=== PATIENT | female | born 1970 | race Caucasian/White ===

== ENCOUNTER → 2016-04-27 | Outpatient (CLI) | payer OTHER ==
[~2016-04-27] MED LIST: BIOT10CA PO; CALC-5 PO; PEDICHW50 PO; PRLSR20 PO; TNR25 PO
--- NOTE | 2016-05-04 15:38 | EEG Procedure Note ---
EEG Procedure Note Date of Service Apr 27, 2016. Start / End Times Start Time: 04/27/2016 at 1:41 PM End Time: 04/29/2016 at 11:42 AM Referring Physician Howard Small History This is a 46-year-old female with near syncope. Ambulatory 48-hour EEG for further evaluation of possible seizure etiology and spell captured. Home Medication List Scheduled Atenolol (Atenolol), 12.5 MG PO QAM Biotin (Cvs Biotin), 10 MG PO DAILY Calcium-Magnesium W/ Vitamin D (Calcium 500), 2 TABS PO DAILY Omeprazole (Prilosec), 20 MG PO QHS Pediatric Multiple Vitamin W/ (Flintstones Chewable), 2 TAB PO QAM Description This is a 21 electrode ambulatory EEG with a single channel dedicated to limited EKG. The electrodes were placed in accordance with the International 10- 20 system. Heart rate limited EKG lead was noted to be regular. Technical factors limiting read and interpretation of EEG: F7 disconnection after 4:20 PM on April 27 O2, P3, P4 disconnection artifact after 11:30 PM on April 27 Fp1 disconnection artifact after 1 AM on April 28 T6 and T4 disconnection artifact after 7 AM on April 28. Multiple lead artifact after 9 AM on April 28 significantly limiting the EEG read and interpretation after this time. At the start of the recording the patient was in an awake state. Background was well organized and composed of symmetric mixed alpha and beta frequencies. There was a symmetric well-formed moderate amplitude 10-11 Hz posterior dominant rhythm that was reactive to eye opening and closure. Sleep was indicated by symmetric sleep spindles and vertex waves. Patient journal was returned and reviewed. No clinical events were noted. Interpretation This is a normal 48-hour ambulatory EEG. Day 2 was severely technically limited secondary to multiple electrode artifact. There was no observed electrographic seizures or epileptiform discharges. Clinical Correlation Day 2 was severely technically limited secondary to multiple electrode artifact. A normal EEG does not rule out epilepsy if there is a strong clinical suspicion or for clinical events not captured.
== END | disposition home or self-care (01) ==
LOC: C.NEUR 13:15
PROVIDERS: ATTEND Psychiatry & Neurology Neurology
DX: R55 Syncope and collapse (principal)

== ENCOUNTER 2018-03-17 05:21 | Observation (INO) ==
--- NOTE | 2018-03-03 09:52 | Anesthesiology Consultation ---
Date of Service March 03, 2018 Assessment & Plan (1) Encounter for pre-operative examination: Chart Review Chart Review: Acceptable Risk for Surgery and Patient seen in Pre Admission Testing Consults Requested medical (Dr. Louise ([facility] [place] in [place]) on 03/09) Patient saw PCP on 03/14/18. Dr. Louise stated "Will have her complete CXR. If unremarkable (it was), then maximized for OR." Teaching & Discussion Pre-Anesthesia Teaching/Discussion Notes: Instructed NPO after midnight before surgery, except medications with 15 cc of water. Medication instructions provided according to the PAT guidelines. ASA ASA2 Proposed Anesthesia Anesthesia Type: General Risk / Benefits Reviewed With: PT / POA / Parent / Guardian, Accepts Plan and Informed Consent Obtained NPO Date Last Intake of Fluids: 03/17/18 Time Last Intake of Fluids: 04:00 Date Last Intake of Solids: 03/16/18 Time Last Intake of Solids: 19:00 History Surgery Operation Date: 03/17/18 07:00 Proposed Procedures p Evaluation Under Anesthesia, Transvaginal Hysterectomy, Cystoscopy - Selvin Miller MD Height/Weight Height: 5 ft 5 in Weight: 72.1 kg Allergies Allergy/AdvReac Type Severity Reaction Status Date / Time latex Allergy Mild RASH Verified 03/17/18 05:50 acetaminophen [From Percocet] AdvReac Unknown Abdominal Verified 03/17/18 05:50 Pain ? SEE NOTES codeine AdvReac Unknown Abdominal Verified 03/17/18 05:50 Pain ? SEE NOTES hydrocodone [From Vicodin] AdvReac Unknown Abdominal Verified 03/17/18 05:50 Pain ? SEE NOTES oxycodone [From Percocet] AdvReac Unknown Abdominal Verified 03/17/18 05:50 Pain ? SEE NOTES Medications Home Medications Medication Instructions Recorded Confirmed Last Taken ascorbic acid-vitamin E-biotin 3 tab PO DAILY 02/22/18 03/17/18 03/16/18 05:30 [Hair, Skin, Nails with Biotin] cetirizine 10 mg PO DAILY 02/22/18 03/17/18 03/16/18 05:30 cholecalciferol (vitamin D3) 2,000 unit PO DAILY 02/22/18 03/17/18 03/16/18 05: 30 [Vitamin D3] fluticasone [Flonase Allergy 1 spray INTRANASAL DAILY PRN 02/22/18 03/17/18 04:15 Relief] omeprazole 20 mg PO BID 02/22/18 03/17/18 03/17/18 04:15 pediatric multivitamin 2 tab PO DAILY 02/22/18 03/17/18 03/16/18 05:30 acetaminophen [Acetaminophen Extra 500 mg PO Q6H PRN 03/17/18 03/17/18 Unknown Strength] albuterol sulfate [Ventolin HFA] 2 puff INHALATION QID PRN 03/17/18 03/17/18 Unknown metronidazole 500 mg PO BID 03/17/18 03/17/18 03/16/18 18:00 Active Medications Generic Name Dose Route Start Last Admin Trade Name Freq PRN Reason Stop Dose Admin Lactated Ringer's 1,000 mls @ 15 mls/hr 03/17/18 06:00 03/17/18 06:17 Lr IV 03/18/18 05:59 15 mls/hr .Q24H OUMAR Administration Beta Lucinda Beta Lucinda Taken Within 24 Hours: No Past Medical History Medical History Acid reflux Confusion, hx of, without neuro findings 2016/CHEST & HEAD PRESSURE/DISORIENTED...[facility] ED VISIT/NEURO VISIT...SYMTPOMS "CAFFEINE INDUCED" Diabetic neuropathy LEGS History of prediabetes HX OF "BORDERLINE DIABETIC"/MEDS..RESOLVED/NO MEDS History of skin cancer Neck muscle strain PAC (premature atrial contraction) "CAFFEINE INDUCED" PVC's (premature ventricular contractions) "CAFFEINE INDUCED" Past Family History Family History Father Family history of diabetes mellitus Grandfather Family history of diabetes mellitus Other Family history of breast cancer Family history of colon cancer Family history of prostate cancer Past Surgical History Surgical History History of arthroscopy of right shoulder ROTATOR CUFF REPAIR History of colonoscopy History of endoscopy UPPER History of foot surgery LEFT X2 (ARTHROSCOPY X1, OPEN X1) History of laparoscopic cholecystectomy History of sleeve gastrectomy "GASTRIC SLEEVE" History of wisdom tooth extraction Hx of melanoma excision Around left eye Past Anesthesia History No Hx of Anesthesia Complications and No Family Hx of Anesthesia Complications History of PONV No Motion Sickness Screening History of Motion Sickness: No Social History Smoking Status: Current every day smoker tobacco type: cigarettes Smoking cigarettes per day: .5 PPD X 26 YEARS Do You Dip or Chew Tobacco: No Hx Alcohol Use: No Hx Substance Use: No substance use type: does not use Exercise / Class Metabolic Activity II 4-5 Yardwork/Stairs/Walk up hill (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 Denies CP or SOB. ) Review of Systems Patient denies chest pain, shortness of breath, dyspnea on exertion, cough, wheezing. +joint pain (knees) +acid reflux +palpitations (caffeine induced, with panic attacks) Physical Exam Vital Signs Last Vital Signs Temp 37.0 C 03/17/18 06:02 Pulse 63 03/17/18 06:02 Resp 18 03/17/18 06:02 BP 105/64 03/17/18 06:02 Pulse Ox 98 03/17/18 06:02 BP: 97/68 P: 56 R: 18 T: 98.6 SPO2: 99% ENMT Thyromental Distance: > or= 3.5 Finger Breadths (3.5) Mallampati Class: II Neck normal visual inspection and trachea midline; neck extension not limited Respiratory normal respiratory effort Auscultation: lungs clear to auscultation bilaterally Cardiovascular Rate/Rhythm: regular rate and regular rhythm Heart Sounds: no murmur Vessels: no carotid bruit Neurologic moves all extremities Psychiatric Orientation: alert and oriented x 3 Testing Electrocardiogram Date: 03/03/18 Findings: + SB @ (53) Sinus arrhythmia When compared with ECG of 03/25/16, no significant change was found. Chest X-Ray Date: 03/14/18 Findings: + NAD Echocardiogram Date: 03/25/16 EF: 60-65% LV Function: normal Valvular Disease: + no significant valvular disease Trace MR and TR. Stress Test Date: 03/25/16 Type: DSE Findings: + WNL Resting EF: 60-65% Resting LV Function: normal Resting RWMA: + none Baseline ECG displays NSR. Stress ECG shows no ST changes or arrhythmias. Frequent PVC's and ventricular bigeminy recorded during early recovery. Maximum HR was 84% of MPHR. Dobutamine infusion was terminated due to achieving target HR. Normal HR and BP response to dobutamine. Laboratory Results 03/03/18 10:09 Blood Type A Positive 03/03/18 10:09 Antibody Screen NEGATIVE 03/03/18 10:09 PT 10.9 Seconds (9.0-12.0) 03/03/18 10:09 INR 1.0 (0.9-1.1) 03/03/18 10:09 APTT 24.6 Seconds (21.0-31.0) 03/03/18 10:09 Urine Color Dark Yellow 03/03/18 10:09 Urine Appearance Clear (Clear) 03/03/18 10:09 Urine pH 5.5 (4.5-7.5) 03/03/18 10:09 Ur Specific [place] 1.026 (1.000-1.030) 03/03/18 10:09 Urine Protein Negative (Negative) 03/03/18 10:09 Urine Glucose (UA) Negative (Negative) 03/03/18 10:09 Urine Ketones Trace (Negative) H 03/03/18 10:09 Urine Nitrite Negative (Negative) 03/03/18 10:09 Ur Leukocyte Esterase Negative (Negative) 03/03/18 10:09 03/17/18 05:43 POC Glucose 101 H 03/17/18 Unknown POC Ur Test NEG
--- NOTE | 2018-03-03 10:07 | PAT Medication Instructions ---
Medication Instructions Date of Service March 03, 2018 Home Medications ascorbic acid-vitamin E-biotin [Hair, Skin, Nails with Biotin] 3 tab PO DAILY cetirizine 10 mg PO DAILY cholecalciferol (vitamin D3) 2,000 unit PO DAILY fluticasone [Flonase] 1 spray INTRANASAL DAILY NEEDED omeprazole 20 mg PO QAM pediatric multivitamin 2 tab PO DAILY Hold the morning of surgery ascorbic acid-vitamin E-biotin [Hair, Skin, Nails with Biotin] 3 tab PO DAILY cetirizine 10 mg PO DAILY cholecalciferol (vitamin D3) 2,000 unit PO DAILY pediatric multivitamin 2 tab PO DAILY Take morning of surgery Take with a sip of water, OTHERWISE NOTHING TO EAT OR DRINK AFTER MIDNIGHT: fluticasone [Flonase] 1 spray INTRANASAL DAILY NEEDED omeprazole 20 mg PO QAM Other Notes If you have any questions please call us at [phone] or [phone] or [phone] or [phone]
[2018-03-03 11:06] LABS: Appearance Urine Clear (Clear); Basophils # (auto) 0.01 K/uL (0-0.2); Basophils % (auto) 0.1 %; Bilirubin Urine Negative (Negative); Color Urine Dark Yellow; Eosinophils % (auto) 1.3 %; Glucose Urine UA Negative (Negative); Hematocrit (blood only) 38.8 % (37-47); Hemoglobin 12.9 g/dL (12.0-16.0); Immature Granulocytes # (auto) 0.01 K/uL (0.00-0.02); Immature Granulocytes % (auto) 0.1 %; Ketones Urine Trace (Negative); Leukocyte Esterase Urine Negative (Negative); Lymphocytes # (auto) 2.83 K/uL (1.2-3.4); Lymphocytes % (auto) 36.6 %; Mean Corpuscular Hgb Conc 33.2 g/dL (32-36); Mean Corpuscular Volume 91.5 fL (80-100); Mean Platelet Volume 10.5 fL (7.4-10.4); Monocytes # (auto) 0.59 K/uL (0.11-0.59); Monocytes % (auto) 7.6 %; Neutrophils % (auto) 54.3 %; Nitrite Urine Negative (Negative); Platelet Count 339 K/uL (130-400); Protein Urine Negative (Negative); RDW Coefficient of Variation 14.3 % (11.5-14.5); RDW Standard Deviation 48.5 fL (36.4-46.3); Red Blood Count 4.24 M/uL (4.2-5.4); Specific Gravity Urine 1.026 (1.000-1.030); Urobilinogen Urine Negative (Negative); White Blood Count 7.74 K/uL (4.8-10.8); pH Urine 5.5 (4.5-7.5)
[2018-03-03 11:25] LABS: Partial Thromboplastin Ratio 0.9; Partial Thromboplastin Time 24.6 Seconds (21.0-31.0); Prothrombin Time 10.9 Seconds (9.0-12.0)
[2018-03-17] MEDS ORDERED: CEFAZOLIN 2000MG 2,000 MG/15 ML SYR IV SCH (06:00)
[2018-03-17] MEDS ORDERED: LACTATED RINGER'S 1,000 ML IV SCH (06:00)
[2018-03-17] MEDS: LR 15ML/HR IV SCH ×2 (06:17→10:07)
[2018-03-17] MEDS ORDERED: ACETAMINOPHEN 1000 MG/100 ML IV IV ONE (06:39)
[2018-03-17] MEDS ORDERED: ONDANSETRON INJ 2 MG/ML 2 ML VIAL ONE (06:42)
[2018-03-17] MEDS ORDERED: DEXAMETHASONE SOD INJ 4 MG/ML VIAL ONE (06:42)
[2018-03-17] MEDS ORDERED: LIDOCAINE HCL 2% 2 ML VIAL/AMP(20MG/ML) INFIL ONE (06:42)
[2018-03-17] MEDS ORDERED: MIDAZOLAM HCL 1 MG/ML 2ML VIAL ONE (06:43)
[2018-03-17] MEDS ORDERED: PROPOFOL IV EMULSION 10 MG/ML 20 ML VIAL IV ONE (06:43)
[2018-03-17] MEDS ORDERED: fentaNYL citrate 100 MCG/2 ML VIAL ONE ×3 (06:43→11:21)
[2018-03-17] MEDS ORDERED: HYDROmorphone INJ 1 MG/ML SYRINGE IV PRN (06:47)
[2018-03-17] MEDS ORDERED: fentaNYL citrate 100 MCG/2 ML VIAL IV PRN (06:47)
[2018-03-17] MEDS ORDERED: ePHEDrine sulfate 50 MG/ML AMP IV PRN (06:47)
[2018-03-17] MEDS ORDERED: ONDANSETRON INJ 2 MG/ML 2 ML VIAL IV PRN ×2 (06:47→09:31)
[2018-03-17] MEDS ORDERED: ATROPINE SULFATE 0.1 MG/ML 5ML SYR IV PRN (06:47)
[2018-03-17] MEDS ORDERED: BUPIVACAINE/EPINEPHRINE 0.5% MPF 1:200,000 30 ML VIAL ONE (06:51)
[2018-03-17] MEDS ORDERED: [UNRECOGNIZED DRUG - OTHER] ONE (06:51)
--- NOTE | 2018-03-17 06:53 | History & Physical Bridge Note ---
Date of Service March 17, 2018 History & Physical Bridge Note I have examined the patient, reviewed the History & Physical and in the interval since the performance of the History & Physical I have noted the following changes of clinical significance: no changes noted
[2018-03-17] MEDS ORDERED: ePHEDrine sulfate 50 MG/ML SYR ONE (07:37)
[2018-03-17] MEDS ORDERED: NEOSTIGMINE METHYLSULFATE 5 MG/5 ML SYR ONE ×2 (07:46→11:05)
[2018-03-17] MEDS ORDERED: GLYCOPYRROLATE 0.2 MG/ML VIAL ONE ×2 (07:46→11:05)
[2018-03-17] MEDS ORDERED: ROCURONIUM BROMIDE 10 MG/ML 5 ML VIAL ONE (08:05)
[2018-03-17] MEDS ORDERED: METHYLENE BLUE 0.5% 10 ML VIAL ONE (08:55)
[2018-03-17] MEDS ORDERED: METHYLENE BLUE 0.5% 10 ML VIAL IV SCH (09:15)
--- NOTE | 2018-03-17 09:29 | Post Operative Brief Note ---
Immediate Post Op Note v1 Date of Surgery March 17, 2018 Pre & Post Diagnosis Operation Date: 03/17/18 07:00 Pre-Op Diagnosis: Heavy Periods Post-Op Diagnosis: Heavy Periods Procedure Operation Date: 03/17/18 07:00 Actual Procedures p Evaluation Under Anesthesia, Transvaginal Hysterectomy, Right salpingectomy, Mc call Culdeplasty, Cystoscopy(Not Applicable) - Selvin Miller MD Surgeon Selvin Miller MD Graduating Machine Operator Dr. Ken, FELISHA Hoover Estimated Blood Loss 50 Findings Consistent with Post-Op Diagnosis Fluids 900 ML Drains Jones Catheter Complications none Disposition Accompanied Patient To Recovery: Yes Disposition: Recovery Room Overlapping Procedure I was present for: the critical portions of procedure. (ENTIRE CASE)
[2018-03-17] MEDS ORDERED: MAGNESIUM HYDROXIDE SUSP 30 ML UDC PO PRN (09:31)
[2018-03-17] MEDS ORDERED: PROMETHAZINE HCL 25 MG in SODIUM CHLORIDE 0.9% 50 ML IV PRN (09:31)
[2018-03-17] MEDS ORDERED: SENNA 8.6 MG TAB PO PRN (09:31)
[2018-03-17] MEDS ORDERED: MEPERIDINE HCL 50 MG/ML CARP IV PRN (09:31)
[2018-03-17] MEDS ORDERED: BISACODYL 10 MG SUPP PR PRN (09:31)
[2018-03-17] MEDS ORDERED: IBUPROFEN 600 MG TAB PO PRN (09:31)
[2018-03-17] MEDS ORDERED: KETOROLAC 30 MG/ML VIAL IV PRN (09:31)
[2018-03-17] MEDS ORDERED: ACETAMINOPHEN 1,000 MG/100 ML VIAL IV PRN (09:45)
--- NOTE | 2018-03-17 09:56 | Anesthesiology Progress Note ---
Date of Service March 17, 2018 Anesthesia Post Procedure Vital Signs Vital Signs: Temp Pulse Pulse Resp BP Pulse Ox 03/17/18 09:41 36.3 C L 65 14 107/56 L 100 03/17/18 06:02 37.0 C 63 18 105/64 98 Pain Intensity Head: Pain Intensity: 4 Abdomen: Pain Intensity: 0 Notes Mental Status: alert / awake / arousable and participated in evaluation Patient Amnestic to Procedure: Yes Nausea / Vomiting: adequately controlled Pain: adequately controlled Airway Patency, RR, SpO2: stable & adequate BP & HR: stable & adequate Hydration State: stable & adequate Anesthetic Complications: no major complications apparent and Pt Satisfied with anesthetic care
[2018-03-17] MEDS ORDERED: D5W AND LACTATED RINGERS 1,000 ML IV SCH (11:05)
--- NOTE | 2018-03-17 14:28 | Obstetrical Progress Note ---
Date of Service March 17, 2018 Subjective Postop check Late entry from 1300 Patient is seen and examined Feels well, no complaints, likes to be discharged home She is standing next to the window and holding her catheter She likes it out. Denies any pain. No CP/ SOB/ Dizziness/ N&V/ VB/ Leg pain Tolerated clears and already had some lunch, regular, fish and rice. Explained about the surgery and findings Recommended hills drain/ vag packing overnight and remove them in the morning and then d/c her home but she adamantly requesting to be discharged Agreed to stay until after dinner, remove hills/ packing and then d/c if able to void Vital Signs Temp Pulse Pulse Pulse Resp BP BP 03/17/18 13:34 36.6 C 51 L 18 96/58 L 03/17/18 12:34 36.4 C L 60 20 101/64 03/17/18 11:40 36.4 C L 50 L 18 88/50 L 03/17/18 11:10 36.5 C 54 L 18 92/58 L 03/17/18 10:40 36.4 C L 55 L 16 95/59 L 95/59 L 03/17/18 10:10 68 20 103/59 L 03/17/18 10:00 56 L 21 98/56 L 03/17/18 09:50 61 15 97/54 L 03/17/18 09:41 36.3 C L 65 14 107/56 L 03/17/18 06:02 37.0 C 63 18 105/64 Pulse Ox 03/17/18 13:34 98 03/17/18 12:34 98 03/17/18 11:40 100 03/17/18 11:10 100 03/17/18 10:40 100 03/17/18 10:10 99 03/17/18 10:00 98 03/17/18 09:50 100 03/17/18 09:41 100 03/17/18 06:02 98 Intake and Output 03/16/18 03/17/18 03/17/18 22:59 06:59 14:59 Intake Total 1829.083 / 1829.083 Output Total 275 / 275 Balance 1554.083 / 1554.083 Intake: IV 479.083 / 479.083 Lr 1,000 ml @ 15 mls/hr IV . 479.083 / 479.083 Q24H [facility] Rx#:[id number] IV Perioperative 900 / 900 Oral 450 / 450 Output: Estimated Blood Loss 50 / 50 Urine Amount (Catheter) 225 / 225 Hills/Indwelling 225 / 225 Other: Weight 72.1 kg PE: General: Alert, orientedx3, NAD, ambulating in the room. CVS: S1S2 RRR Lungs: CTAB Incisions C/D/I No VB Ext: NT, no edema, SCD's on AP: 47 yo female s/p EUA, TVH, rt salpingectomy, Mc call culdeplasty, Cystoscopy , pod#0 VSS Afebrile doing well Continue to routine postop care Encourage PO intake, may ambulate D/C hills after dinner Desires d/c tonight Physical Exam 2 Vital Signs (Past 24 Hours): Last Vital Signs Temp 36.6 C 03/17/18 13:34 Pulse 51 L 03/17/18 13:34 Resp 18 03/17/18 13:34 BP 96/58 L 03/17/18 13:34 Pulse Ox 98 03/17/18 13:34
--- NOTE | 2018-03-17 16:37 | Obstetrical Progress Note ---
Date of Service March 17, 2018 Subjective Patient is seen She wanted her hills out early so that she can go It was taken out with vaginal packing She feels very good, only took Motrin for pain, nothing else since surgery No VB Voided small amount Passed gas She has been waiting for her dinner She likes to go back work early, so that she can be paid, she is a single mom. 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 Physical Exam 2 Vital Signs (Past 24 Hours): Last Vital Signs Temp 36.7 C 03/17/18 15:05 Pulse 68 03/17/18 15:05 Resp 20 03/17/18 15:05 BP 131/86 03/17/18 15:05 Pulse Ox 94 03/17/18 15:05
--- NOTE | 2018-03-17 17:17 | Operative Report ---
DATE OF OPERATION: 03/17/2018 PREOPERATIVE DIAGNOSES: Patient is a 47-year-old G3, P3-0-0-3 female with heavy menstrual bleeding, declining medical therapy, intrauterine device, endometrial ablation, and desires hysterectomy. POSTOPERATIVE DIAGNOSIS: Same. PROCEDURES: Exam under anesthesia, transvaginal hysterectomy, right salpingectomy, Connelly culdoplasty, cystoscopy. SURGEON: Selvin Miller MD. CABLE SUPERVISOR: Curtis Ken MD and FELISHA Hoover ESTIMATED BLOOD LOSS: 50 mL. FLUIDS: 900 mL of lactated ringer. DRAINS: Jones catheter drained 125 mL of clear urine. COMPLICATIONS: None. ANESTHESIA: General endotracheal. FINDINGS: Exam under anesthesia revealed stage I-II cystocele, uterine prolapse, anteverted normal size uterus, nonpalpable adnexa. DESCRIPTION OF PROCEDURE: The patient was taken to operating room where general anesthesia was given without difficulty. She was placed in dorsal lithotomy position and prepared and draped in the usual sterile fashion. Exam under anesthesia was done with the above findings, and a Jones catheter was placed in the bladder. A weighted speculum was placed in the patient's vagina. The anterir vaginal wall was retracted with Sim's valve. Cervix was visualized, grasped with single tooth tenaculum. Cervix was injected circumferentially with 0.5% Marcaine with epinephrine in it. The vagina then was incised circumferentially around the cervix with the tip of Bovie, and this incision was continued with the tip of curved Panda scissors. Vaginal mucosa was dissected off from cervix bluntly with the sponge stick and with fingers, and we were then able to see the anterior cul-de-sac/ vesicouterine peritoneum reflexion from the vaginal site. It was held with the pickups and entered with the Metzenbaum scissors. Anterior cul-de-sac was entered and confirmed with the digital exam. A straight retractor was placed under the bladder to retract bladder during surgery. Posterior cul-de-sac then was visualized, held with pickups, and the posterior cul-de-sac peritoneum was entered with the Metzenbaum scissors and it was confirmed digitally. A long weighted speculum was placed in the posterior cul-de-sac. Then both sacrouterine ligaments were felt, and they were held with [place] clamps, cut and suture ligated x2 with 0 Vicryl on both sides, and then cardinal ligaments were held with [place] clamps, cut and suture ligated with 0 Vicryl on both sides. The rest of the cardinal ligaments and descending branches of uterine artery held with [place] clamps, cut and suture ligated with 0 Vicryl. The uterine arteries were held with [place] clamps, cut and suture ligated x2 on both sides, and then broad ligaments and ascending branches of uterine arteries were held with [place] clamps, cut and suture ligated with [place] clamps with 0 Vicryl on both sides. We then were able to see the fundus of the uterus. The right fallopian tube was partially visualized with fimbria on it. It was held with a long Zayra clamp. It was also cut and suture ligated, and it was sent to pathology. The left fallopian tube was not visualized. She had a tubal ligation in the past. The cornua of the uterus then was held with long Zayra clamps on both sides, cut and suture ligated with 0 Vicryl. Excellent hemostasis was achieved. Uterus and cervix were detached and sent to pathology together. Then the pedicles were checked. There was small oozing on the right lower sacrouterine ligament site. It was held with [place] clamps and suture ligated with 0 Vicryl. Excellent hemostasis was achieved. We were then able to see both ovaries normally but no remnant fallopian tubes were seen. The bowels then were pushed back with a sponge and a stick, and we then proceeded with a Connelly suture. #1 Vicryl was introduced from posterior vagina into the cul-de-sac, and then the peritoneum on the cul-de-sac was sutured up to the right sacrouterine ligament and then came back down to the cul-de-sac and then up to the left sacral uterine ligament and then came back down to the middle of the cul-de-sac, and it was brought out from the vagina 1 cm next to the entrance site. It was held with a hemostat to be tied later at the end of surgery. The sutures on the sacrouterine ligaments then were tied in the middle. The vaginal mucosa then was held with [place] clamps, and it was closed with 0 Vicryl in a running fashion starting from left corner finishing on the right corner. An excellent hemostasis was achieved. The Connelly suture was tied deep up into the vagina and then cut. We then proceeded to cystoscopy. Jones catheter was removed, and cystoscopy was done. The bladder mucosa was seen to be intact with the bubble on the top. Both ureteral openings then were visualized, and they were ejecting blue colored urine on both sides. Those were visualized 2 times on both sides, and then cystoscope was ended, bladder was drained, and then it was placed in a new sterile Jones catheter. The vagina was packed with bacitracin soaked packing, and the procedure was ended. The patient tolerated the procedure well. Sponge, lap, needle counts were correct x3. She was taken off from lithotomy position. She was cleaned and dried. She was given 2 g of cefazolin before surgery, and she was taken to recovery room in stable condition. No complications happened. Dr. Jesus Manuel Lew, and FELISHA Hoover were also present during whole procedure. I attest to the content of the Intraoperative Record and any orders documented therein. Any exceptions are noted below. JORDY
--- NOTE | 2018-03-22 02:14 | Discharge Summary ---
DETAILS OF ADMISSION: The patient is a 47-year-old G3, P3-0-0-3 female with a history of heavy menstrual periods, dysmenorrhea, declining medical therapy and IUD, desired hysterectomy. She was admitted for scheduled surgery/ Vavinal hysterectomy on 03/17/2018. HOSPITAL COURSE: She went through exam under anesthesia, transvaginal hysterectomy, right salpingectomy, Connelly culdoplasty, cystoscopy on the morning of 03/17/18. Her surgery was uncomplicated. See dictated op note for details. On postop period, the patient was doing well. The patient ambulated very quickly 3 hours after surgery. She asked for regular food for her lunch and tolerated some of it. She wanted to be discharged in the afternoon. Recommended to stay overnight for pain control and observation but she delcined. She was observed in the afternoon. Jones catheter was removed. She voided 2 times without difficulty. She was passing gas, eating regular diet, ambulating. Her pain was minimal. She has not asked for pain meds. She has h/o allergies to narcotics, was not sure which one she was. She declined a prescription for narcotics and she wanted to be discharged home with oral Tylenol only. Her physical exam was unremarkable. Abdomen was soft, nontender, nondistended. Bowel sounds were present. No vaginal bleeding noted. She was discharged home on 03/17. Discharge instructions were given when to call, recommended to be off work and follow up in the office in 1-2 weeks. All questions were answered. JORDY
== END 2018-03-17 18:00 | disposition home or self-care (01) ==
LOC: 4N 05:21 → ASU 05:21